=== PATIENT | male | born 1975 | race Caucasian/White ===

== ENCOUNTER 2025-02-26 05:18 | Inpatient (IN) | payer BC ==
[2025-02-25 11:53] VITALS: PULSE 90; RESP 16; O2SAT 96
[2025-02-25 12:36] LABS: MEAN PLATELET VOLUME 9.9 FL (7.4-10.4); PRE OP HEMATOCRIT 43.7 % (42.0-52.0); PRE OP HEMOGLOBIN 14.7 g/dL (14.0-17.9); PRE OP PLATELET COUNT 327 X10'3 (140-440); PRE OP WHITE BLOOD COUNT 9.2 10'3 (4.8-10.8); RED CELL DISTRIBUTION WIDTH 13.1 % (11.5-14.5)
[2025-02-25 12:46] LABS: PRE OP INR 1.0 INR; PRE OP PARTIAL THROMB. TIME 26.0 SECONDS (22-32); PRE OP PROTIME 10.7 SECONDS (9.0-12.0)
[2025-02-25 12:47] LABS: CREATININE 1.00 MG/DL (0.60-1.10); PRE OP ALT 50 U/L (30-65); PRE OP ANION GAP 11 (8-16); PRE OP AST 24 U/L (10-37); PRE OP BILIRUB, TOTAL 0.6 MG/DL (0.0-1.0); PRE OP GLUCOSE 119 MG/DL (70-104); PRE OP POTASSIUM 4.2 MMOL/L (3.4-5.1); PRE OP SODIUM 139 MMOL/L (135-145); TOTAL CARBON DIOXIDE 28.4 MMOL/L (24-32); eGFR 80 ML/MIN
[2025-02-25 12:47] LABS: UA COLLECTION TYPE CLN CATCH MIDSTREAM
[2025-02-25 12:48] LABS: LEUKOCYTE ESTERASE ,URINE NEGATIVE (Neg); NITRITES, URINE NEGATIVE (Neg); OCCULT BLOOD,URINE NEGATIVE (Neg)
[2025-02-25 12:49] LABS: MUCUS STRANDS FEW /LPF (Neg); SQUAMOUS EPITHELIAL CELL,UR MANY /LPF (FEW)
--- NOTE | 2025-02-25 13:15 | ELECTROCARDIOGRAPH REPORT ---
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 TIMMY Guzman Measurements Intervals [place] Rate: 85 P: 36 UT: 151 QRS: 49 QRSD: 84 T: -4 QT: 362 QTc: 431 Interpretive Statements Sinus rhythm Borderline T wave abnormalities Electronically Signed On 02-25-2025 15:32:[address] TIMMY Guzman Please click the below link to view image of tracing.
--- NOTE | 2025-02-25 13:56 | RADIOLOGY REPORT ---
DI CHEST,TWO VIEWS CLINICAL HISTORY: PRE OP CXR AVR COMPARISON: None TECHNIQUE: Frontal and lateral view of the chest was obtained FINDINGS: Lines and Tubes: None Lungs: No focal consolidation. Pleura: No effusion. No pneumothorax. Cardiomediastinal contours: Unremarkable Bones: No acute osseous abnormality. IMPRESSION: No acute cardiopulmonary disease.
[2025-02-25 14:37] LABS: ABG BASE EXCESS -0.3 mmol/L (-2.0-3.0); ABG HCO3 22.8 mmol/L (21.0-28.0); ABG OXYGEN SATURATION 96.8 % (94.0-98.0); ABG PCO2 (T) 33.1 mmHg (35.0-48.0); ABG PH (T) 7.456 (7.350-7.450); ABG PO2 (T) 88.1 mmHg (83.0-108.0); ALLEN'S TEST POSITIVE; FCOHb 0.3 % (0.5-1.5); FHHb 3.2 % (0.0-5.0); FIO2 21.0 mmHg/%; FMetHb 0.3 % (0.0-1.5); FO2Hb 96.2 % (94.0-98.0); MODE ROOM AIR; PATIENT TEMPERATURE 37.0; TOTAL HEMOGLOBIN 15.5 G/dl (13.5-17.5)
--- NOTE | 2025-02-25 15:43 | VASCULAR REPORT ---
CAROTID DOPPLER ULTRASOUND HISTORY: Preop COMPARISON: None TECHNIQUE: Real time martin scale, color Doppler, and spectral duplex images are obtained through the c arotid and vertebral arteries. Findings: Peak systolic velocity right internal carotid artery is 96 cm/s and right common carotid artery is 88 cm/s. Ratio is 1.09. Right vertebral artery not visualized. No significant atherosclerotic plaque no katharina within the right carotid arterial system. Peak systolic velocity left internal carotid artery is 75 cm/s and left common carotid artery is 85 c m/s. Ratio is 0.9. Antegrade flow noted in left vertebral artery. No significant atherosclerotic plaq ue noted within the left carotid arterial system. Impression: 1. No evidence of hemodynamically significant stenosis within the bilateral carotid arterial systems. 2. Antegrade flow within left vertebral artery. Right vertebral artery not visualized.
--- NOTE | 2025-02-25 16:15 | VASCULAR REPORT ---
PROCEDURE: [facility] VL VENOUS Exam Date: 02/25/2025 12:43 PM History: Preop for CABG Findings: Technique: Duplex Doppler evaluation of the superficial veins of the right and left lower extremities was perfor med including color Doppler and spectral/pulsed waveform analysis. Findings: Measurements of the lower extremity superficial veins in millimeters (mm) are provided below. RIGHT GREAT SAPHENOUS VEIN (GSV) in mm: 5.12 at proximal thigh, patent. 2.13 at mid thigh, patent. 3.46 at distal thigh, patent. 2.70 at proximal calf, patent. 2.70 at mid calf, patent. 0.27 at distal calf, patent. LEFT GREAT SAPHENOUS VEIN (GSV) in mm: 5.50 at proximal thigh, patent. 2.23 at mid thigh, patent. 3.31 at distal thigh, patent. 2.49 at proximal calf, patent. 2.0 at mid calf, patent. 2.36 at distal calf, patent. Impression: Lower extremity superficial venous mapping as detailed above.
--- NOTE | 2025-02-25 16:49 | PROCEDURE NOTE - Respiratory ---
Procedure Note-Respiratory Providers to CC Copies To 1: FANG SMITH III, MD Procedure Name: This is a spirometry study dated February 25, 2025. Spirometry measurements: Both the forced vital capacity and the FEV1 are normal. The FEV1 ratio is normal. The flow rates are normal. Bronchodilator was not administered as part of the study. Conclusion: Normal spirometry study. We have no previous studies for comparison. A blood gas was drawn from this patient while the patient was breathing room air. The blood pH is normal at 7.45. The pCO2 is borderline reduced at 33 mmHg. The room air oxygen level is normal with a PO2 of 88 mmHg. VIPUL DICKERSON MD Feb 25, 2025 16:49
[~2025-02-26] VITALS: Ht 167.6 cm; Wt 101.1 kg
[2025-02-26] VITALS (21 sets, daily range): BP systolic 95–152; BP diastolic 44–84; PULSE 95–118; RESP 12–25; TEMP 98.4; O2SAT 93–100
[~2025-02-26 05:18] MED LIST: AMLO1TAB12 PO; ATOR40TA2 PO; DULA1.5P SUBCUT; LANS30TA4 PO
[2025-02-26] MEDS ORDERED: insulin glargine (Lantus) pen - multi-dose SQ PRN ×2 (05:30→10:45)
[2025-02-26] MEDS: Insulin Reg/NS 100units/100mL 100 ML IV SCH ×2 (05:30→10:45)
[2025-02-26] MEDS ORDERED: dextrose 50%-water 50ml dispensing syringe IV PRN ×2 (05:30→10:45)
[2025-02-26] MEDS: ringers solution, lacted 1,000 ML IV SCH (06:23)
[2025-02-26] MEDS: VANCOMYCIN/H2O 1.5g/300mL PB 300 ML IV ONE (06:24)
[2025-02-26] MEDS: mupirocin 2% nasal ointment 1gm UD NS ONE (06:25)
[2025-02-26] MEDS: DOCUMENT DATE & TIME OF BETA-BLOCKER PO ONE (06:25)
[2025-02-26] MEDS: metoprolol tartrate 12.5mg (1/2 tablet) PO ONE (06:25)
[2025-02-26] MEDS: ceFAZolin 2gm/dext,iso 50mL 50 ML IV ONE (06:26)
[2025-02-26] MEDS ORDERED: vancomycin 1,000mg inj ONE (07:00)
[2025-02-26] MEDS ORDERED: LIDOcaine 1% 30ml preserv. free vial ONE (07:31)
[2025-02-26] MEDS ORDERED: BUPIVAcaine 0.5% inj/PF 30 ML ONE (07:31)
[2025-02-26] MEDS ORDERED: SUfentanil 50mcg/ml 1ml amp IV ONE (07:44)
[2025-02-26] MEDS ORDERED: rocuronium 10mg/ml inj IV ONE ×2 (07:44→07:45)
[2025-02-26] MEDS ORDERED: MIDAZolam 1 MG/ML 5ML VIAL ONE (07:44)
[2025-02-26] MEDS ORDERED: propofol inj 20 ML IV ONE (07:44)
[2025-02-26] MEDS: midazolam 1 mg/ML 2ml injection IV ONE (07:58)
[2025-02-26 08:46] LABS: ABG BASE EXCESS -0.2 mmol/L (-2.0-3.0); ABG HCO3 25.2 mmol/L (21.0-28.0); ABG OXYGEN SATURATION 98.8 % (94.0-98.0); ABG PCO2 43.8 mmHg (35.0-48.0); ABG PH 7.378 (7.350-7.450); ABG PO2 139.1 mmHg (83.0-108.0); CL (ABG) 101 mmol/L (98-107); FCOHb 0.2 % (0.5-1.5); FHHb 1.2 % (0.0-5.0); FMetHb 0.3 % (0.0-1.5); FO2Hb 98.3 % (94.0-98.0); GLUCOSE (ABG) 145 mg/dl (65-95); IONIZED CA (ABG) 1.16 mmol/L (1.15-1.33); K (ABG) 4.2 mmol/L (3.40-4.50); TOTAL HEMOGLOBIN 14.2 G/dl (13.5-17.5)
[2025-02-26 09:22] LABS: ACTIVATED CLOTTING TIME 559.0 SEC (101-148)
[2025-02-26 09:33] LABS: ABG BASE EXCESS 0.4 mmol/L (-2.0-3.0); ABG HCO3 25.0 mmol/L (21.0-28.0); ABG OXYGEN SATURATION 99.3 % (94.0-98.0); ABG PCO2 40.4 mmHg (35.0-48.0); ABG PH 7.410 (7.350-7.450); ABG PO2 276.9 mmHg (83.0-108.0); CL (ABG) 100 mmol/L (98-107); FCOHb 0.3 % (0.5-1.5); FHHb 0.7 % (0.0-5.0); FMetHb 0.3 % (0.0-1.5); FO2Hb 98.7 % (94.0-98.0); GLUCOSE (ABG) 124 mg/dl (65-95); IONIZED CA (ABG) 1.01 mmol/L (1.15-1.33); K (ABG) 5.2 mmol/L (3.40-4.50); TOTAL HEMOGLOBIN 10.6 G/dl (13.5-17.5)
[2025-02-26 09:41] LABS: ACTIVATED CLOTTING TIME 564.0 SEC (101-148)
[2025-02-26 09:48] LABS: ABG BASE EXCESS VENOUS 0.5 mmol/L (-2.0-3.0); ABG HCO3 VENOUS 26.7 mmol/L (22.0-29.0); ABG OXYGEN SATURATION VENOUS 84.6 % (60.0-85.0); ABG PCO2 VENOUS 49.5 mmHg (38.0-54.0); ABG PH (VENOUS) 7.349 (7.320-7.430); ABG PO2 VENOUS 51.0 mmHg (23.0-48.0); CL (ABG) 101 mmol/L (98-107); FCOHb VENOUS 0.3 % (0.5-1.5); FHHb VENOUS 15.3 %; FMetHb VENOUS 0.3 % (0.5-1.5); FO2Hb VENOUS 84.1 % (0-80.0); GLUCOSE (ABG) 158 mg/dl (65-95); IONIZED CA (ABG) 1.05 mmol/L (1.15-1.33); K (ABG) 5.1 mmol/L (3.40-4.50); TOTAL HEMOGLOBIN 11.4 G/dl (13.5-17.5)
[2025-02-26 09:56] LABS: ACTIVATED CLOTTING TIME 405.0 SEC (101-148)
[2025-02-26 10:15] LABS: ABG BASE EXCESS 3.3 mmol/L (-2.0-3.0); ABG HCO3 28.2 mmol/L (21.0-28.0); ABG OXYGEN SATURATION 99.4 % (94.0-98.0); ABG PCO2 44.7 mmHg (35.0-48.0); ABG PH 7.418 (7.350-7.450); CL (ABG) 100 mmol/L (98-107); FCOHb 0.3 % (0.5-1.5); FHHb 0.6 % (0.0-5.0); FMetHb 0.3 % (0.0-1.5); FO2Hb 98.8 % (94.0-98.0); GLUCOSE (ABG) 184 mg/dl (65-95); IONIZED CA (ABG) 1.15 mmol/L (1.15-1.33); K (ABG) 5.2 mmol/L (3.40-4.50); TOTAL HEMOGLOBIN 10.3 G/dl (13.5-17.5)
[2025-02-26 10:26] LABS: ACTIVATED CLOTTING TIME 640.0 SEC (101-148)
[2025-02-26 10:34] LABS: ABG BASE EXCESS VENOUS 0.2 mmol/L (-2.0-3.0); ABG HCO3 VENOUS 25.5 mmol/L (22.0-29.0); ABG OXYGEN SATURATION VENOUS 80.6 % (60.0-85.0); ABG PCO2 VENOUS 44.1 mmHg (38.0-54.0); ABG PH (VENOUS) 7.380 (7.320-7.430); ABG PO2 VENOUS 44.7 mmHg (23.0-48.0); CL (ABG) 101 mmol/L (98-107); FCOHb VENOUS 0.3 % (0.5-1.5); FHHb VENOUS 19.3 %; FMetHb VENOUS 0.1 % (0.5-1.5); FO2Hb VENOUS 80.3 % (0-80.0); GLUCOSE (ABG) 184 mg/dl (65-95); IONIZED CA (ABG) 1.19 mmol/L (1.15-1.33); K (ABG) 5.0 mmol/L (3.40-4.50); TOTAL HEMOGLOBIN 10.5 G/dl (13.5-17.5)
[2025-02-26 10:37] LABS: ACTIVATED CLOTTING TIME 110 SEC (101-148)
[2025-02-26] MEDS ORDERED: albumin (Human) 5% 250ml 250 ML IV ONE (10:37)
[2025-02-26] MEDS ORDERED: potassium Cl 40MEQ/270ML bag 250 ML IV PRN (10:45)
[2025-02-26] MEDS ORDERED: metoclopramide 5 mg/ml inj IV PRN (10:45)
[2025-02-26] MEDS ORDERED: sodium phosphate inj. 15 MMOL in dextrose 5%-water 250 ML IV PRN (10:45)
[2025-02-26] MEDS ORDERED: NORepinephrine 8mg/ 250ml NS 250 ML IV PRN (10:45)
[2025-02-26] MEDS ORDERED: magnesium hydroxide 30ml (MOM) UD suspension PO PRN (10:45)
[2025-02-26] MEDS ORDERED: mineral oil 133ml enema RC PRN (10:45)
[2025-02-26] MEDS ORDERED: potassium CL 10mEq/100ml bag 100 ML IV PRN (10:45)
[2025-02-26] MEDS ORDERED: potassium Cl 40MEQ/1/2NS 520ml 520 ML IV PRN (10:45)
[2025-02-26] MEDS ORDERED: bisacodyl 10mg suppository rectal RC PRN (10:45)
[2025-02-26] MEDS ORDERED: magnesium sulf-water 4G/100mL 100 ML IV PRN (10:45)
[2025-02-26] MEDS ORDERED: niCARDipine-NS 40mg/200ml IVPB 200 ML IV PRN (10:45)
[2025-02-26] MEDS ORDERED: ondansetron/PF 4mg/2ml inj IV PRN (10:45)
--- NOTE | 2025-02-26 10:53 | OPERATIVE REPORT ---
Operative Report Operative Report Cardiovascular surgery operative report 27 February 2025 Preoperative diagnosis: Severe aortic stenosis, NYHA class two heart failure Postop diagnosis: Same Procedure: Aortic valve replacement using a 25 mm Inspiris pericardial aortic valve prosthesis Surgeon: Dr. Adalid Hernadez assistants: Dr. Jeferson Beyer and Jeff Clement PA-C Anesthesia: General via endotracheal tube Complications: None EBL: 200 mL Procedure: The patient is taken to the operating room and placed in the supine position. Following the induction of general oral endotracheal anesthesia and the placement of appropriate lines the anterior chest, abdomen and bilateral lower extremities were prepped and draped sterilely. A limited upper sternotomy was performed Susu it off in the right 3rd interspace. The patient was systemically heparinized and the pericardium was opened in midline and suspended. Single aortic and dual stage right atrial cannula were then placed. After ensuring an ACT of greater than 300 seconds cardiopulmonary bypass was instituted. The aorta was then crossclamped and the heart was arrested with cold blood [place] cardioplegia delivered antegrade through the aortic root. The aorta was opened transversely well above the right coronary orifice of the valve was inspected. As expected it was a bicuspid valve with severe calcification and restriction. The leaflets were excised and the annulus was debrided free of calcium. The annulus was then sized and a 25 mm Inspiris pericardial aortic valve was chosen. This was implanted into the annulus using interrupted horizontal mattress sutures of pledgeted 2-0 Ethibond, placing the pledgets on the ventricular aspect. The ascending aorta was copiously irrigated with cold saline solution. The aortotomy was then closed with a everting running 4-0 Prolene suture. The suture line was coated with a thin coating of bio glue for hemostatic purposes. Temporary pacing wires placed the anterior surface of the right ventricle and right atrium while 1 L of warm blood was delivered antegrade. With a suction vent in the ascending aorta on high the aortic crossclamp was then removed. The patient returned to a sinus rhythm. Ventilation was resumed. The patient was allowed to begin ejecting to a pressure of 80-90 millimeter of mercury. Transesophageal echocardiography was used to confirm adequacy of de-airing. At that point he was weaned from cardiopulmonary bypass and decannulated in standard fashion. Protamine solution was administered to reverse heparinization and careful hemostasis was achieved throughout the mediastinum. A 32 [place] straight chest tube was placed anterior to the mediastinum. This has secured to skin with 1. Silk. The chest was then closed by 1st reapproximating the thymic tissue in the midline. The sternal edges were treated with vancomycin paste. They were then reapproximated in the midline with interrupted [id number] of 7. Stainless steel wire. The midline fascia, subcutaneous tissue and skin were closed in layers. Sterile ivon ssings were applied and the chest tube was attached to water-seal. The patient was then returned to the ICU in critical but stable condition, having tolerated the procedure satisfactorily. There were no complications. Sponge, needle and instrument counts were correct x2 at the end of the case. Jeff Clement PA-C was present for and assisted throughout the entire procedure. ADALID HERNADEZ III, MD Feb 26, 2025 10:53
[2025-02-26 11:29] LABS: ABG BASE EXCESS -5.7 mmol/L (-2.0-3.0); ABG HCO3 19.0 mmol/L (21.0-28.0); ABG OXYGEN SATURATION 99.0 % (94.0-98.0); ABG PCO2 (T) 33.9 mmHg (35.0-48.0); ABG PH (T) 7.365 (7.350-7.450); ABG PO2 (T) 142.3 mmHg (83.0-108.0); FCOHb 0.5 % (0.5-1.5); FHHb 1.0 % (0.0-5.0); FIO2 80.0 mmHg/%; FMetHb 0.3 % (0.0-1.5); FO2Hb 98.2 % (94.0-98.0); MODE VENT - SIMV; PATIENT TEMPERATURE 36.4; PEEP 5 cm H2O; RESPIRATORY RATE 12 b/min; TIDAL VOLUME 550 mL; TOTAL HEMOGLOBIN 11.8 G/dl (13.5-17.5)
--- NOTE | 2025-02-26 11:33 | RADIOLOGY REPORT ---
CHEST RADIOGRAPH Indication: POST OP Technique: Single frontal view of the chest was obtained Comparison: None FINDINGS: Lines and Tubes: Endotracheal tube 6 cm from the viki. Nasogastric tube tip in the stomach. Right IJ approach central venous catheter tip in the SVC. Right IJ approach swan-Leora catheter tip in the pulmonary artery. Mediastinal drain. Lungs: No focal consolidation. Pleura: No effusion. No pneumothorax. Cardiomediastinal contours: Unremarkable Bones: No acute osseous abnormality. IMPRESSION: Status post CABG.
[2025-02-26 11:39] LABS: MEAN PLATELET VOLUME 10.2 FL (7.4-10.4); RED CELL DISTRIBUTION WIDTH 12.9 % (11.5-14.5)
[2025-02-26 11:59] LABS: CREATININE 0.73 MG/DL (0.60-1.10); TOTAL CARBON DIOXIDE 26.4 MMOL/L (24-32); eCRCL 113 ML/MIN; eGFR > 90 ML/MIN
[2025-02-26 12:01] LABS: PHOSPHORUS 2.7 MG/DL (2.3-4.5)
[2025-02-26 12:23] LABS: APTT 29 SECONDS (22-32); INR 1.3 INR
[2025-02-26] MEDS: albumin (Human) 5% 250ml 250 ML IV PRN (12:55)
[2025-02-26 13:17] LABS: ABG BASE EXCESS -6.5 mmol/L (-2.0-3.0); ABG HCO3 17.2 mmol/L (21.0-28.0); ABG OXYGEN SATURATION 97.6 % (94.0-98.0); ABG PCO2 (T) 29.0 mmHg (35.0-48.0); ABG PH (T) 7.389 (7.350-7.450); ABG PO2 (T) 95.1 mmHg (83.0-108.0); FCOHb 0.8 % (0.5-1.5); FHHb 2.4 % (0.0-5.0); FIO2 40.0 mmHg/%; FMetHb 0.3 % (0.0-1.5); FO2Hb 96.5 % (94.0-98.0); MODE SPont MODE; PATIENT TEMPERATURE 36.8; PEEP 5 cm H2O; TOTAL HEMOGLOBIN 13.3 G/dl (13.5-17.5)
[2025-02-26] MEDS: ketorolac trometh 15mg/ml vial 15 MG/ML ML IV SCH (13:29)
[2025-02-26] MEDS: ceFAZolin/D5W- 1GM premix 50 ML IV SCH (15:27)
[2025-02-26] MEDS: HYDROcodone/acetaminophen 10/325mg tab PO PRN ×2 (16:23→21:50)
[2025-02-26 17:43] LABS: MEAN PLATELET VOLUME 9.6 FL (7.4-10.4); RED CELL DISTRIBUTION WIDTH 12.8 % (11.5-14.5)
--- NOTE | 2025-02-26 17:43 | ELECTROCARDIOGRAPH REPORT ---
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 TIMMY Guzman Measurements Intervals [place] Rate: 111 P: 55 DE: 153 QRS: 74 QRSD: 82 T: -16 QT: 316 QTc: 430 Interpretive Statements Sinus tachycardia Nonspecific T abnormalities, lateral leads Electronically Signed On 02-27-2025 15:35:[address] TIMMY Guzman Please click the below link to view image of tracing.
[2025-02-26 17:55] LABS: CREATININE 0.87 MG/DL (0.60-1.10); TOTAL CARBON DIOXIDE 25.1 MMOL/L (24-32); eCRCL 95 ML/MIN; eGFR > 90 ML/MIN
[2025-02-26] MEDS: potassium Cl 20mEq/100mL bag 100 ML IV PRN (18:17)
[2025-02-26] MEDS: magnesium sulf-water 2g/50mL 50 ML IV PRN (18:17)
[2025-02-26 18:34] LABS: PHOSPHORUS 0.9 MG/DL (2.3-4.5)
[2025-02-26] MEDS: albumin (Human) 5% 250ml 250 ML IV ONE (18:34)
[2025-02-26] MEDS: morphine 4 MG/ML inj SYRINge IV PRN (18:37)
--- NOTE | 2025-02-26 18:59 | CARDIOLOGY REPORT ---
APPROVED REPORT EXAM: Intraoperative transesophageal echocardiogram with 3D and color flow Doppler. Study contains b [facility] pre- and post-op images. Patient Location: CVOR Blood Pressure: 117/66 mmHg Heart Rate: 92 bpm Indications AORTIC VALVE STENOSIS 25 mm Inspiris Resilia Aortic Valve GUSTAVO Probe Passed by Kristen Meraz MD PRIMARY [employer]ODUCTS INSPECTORS: Federico Murphy MD / Surgeon: Noemy Hernadez MD Previous ECHO: 11/03/24, CVC, EF:70-75; BISI: 0.9; GRAD: 64 / 41; PKV: 4.01 LEFT VENTRICLE PRE-OP: Normal LV size and function. Mild concentric hypertrophy. LVEF is 70%. POST-OP: Unchanged. RIGHT VENTRICLE PRE-OP: Right ventricle is mildly dilated with adequate function. POST-OP: Unchanged. ATRIA PRE-OP: The left atrium size is normal. Left atrial appendage is visualized in multiple planes and ap pears normal without debris. Left upper pulmonary vein identified and isolated by 2D and color Dopple r. POST-OP: Unchanged. AORTIC VALVE PRE-OP: Trileaflet AV is severely stenotic. BISI is measured at 0.9 cmsq. Peak / mean gradients of 66 / 42 mmHG. Peak velocity is measured at 4.06 m/sec. Trivial insufficiency. POST-OP: 25 mm Insiris Res stan bioprosthetic AVR appears well seated with normal function. Trivial paravalvular leak present at 12 o'clock in TTE SAX BASE. Peak / mean gradients of 24 / 15 mmHG. Peak velocity is measured at 2.48 m/sec. MITRAL VALVE PRE-OP: Mild mitral annular calcification without stenosis. Trace regurgitation. POST-OP: Unchanged. TRICUSPID VALVE PRE-OP: The tricuspid valve is normal in structure with trace regurgitation. POST-OP: Unchanged. PULMONIC VALVE PRE-OP: Pulmonic valve is grossly normal in structure with physiologic insufficiency. POST-OP: Unchan ged. GREAT VESSELS PRE-OP: The aortic root is normal in size. Ascending aorta is dilated (4.0 cm) POST-OP: Unchanged. PERICARDIUM PRE-OP: Trivial loculated pericardial effusion present without hemodynamic compromise. POST-OP: Unch anged. CONCLUSION PRE-OP: Normal LV size and function. Mild concentric hypertrophy. LVEF is 70%. POST-OP: Unchanged. MN E-OP: Right ventricle is mildly dilated with adequate function. POST-OP: Unchanged. PRE-OP: The left atrium size is normal. Left atrial appendage is visualized in multiple planes and appears normal with out debris. Left upper pulmonary vein identified and isolated by 2D and color Doppler. POST-OP: Uncha nged. PRE-OP: Trileaflet AV is severely stenotic. BISI is measured at 0.9 cmsq. Peak / mean gradients of 66 / 42 mmHG. Peak velocity is measured at 4.06 m/sec. Trivial insufficiency. POST-OP: 25 mm Insir is Resilia bioprosthetic AVR appears well seated with normal function. Trivial paravalvular leak pres ent at 12 o'clock in TTE SAX BASE. Peak / mean gradients of 24 / 15 mmHG. Peak velocity is measured a t 2.48 m/sec. PRE-OP: Mild mitral annular calcification without stenosis. Trace regurgitation. POST-O P: Unchanged. PRE-OP: The tricuspid valve is normal in structure with trace regurgitation. POST-OP: U nchanged. PRE-OP: The aortic root is normal in size. Ascending aorta is dilated (4.0 cm) POST-OP: Unc hanged. PRE-OP: Trivial loculated pericardial effusion present without hemodynamic compromise. POST- OP: Unchanged. Conclusion PRE-OP: Normal LV size and function. Mild concentric hypertrophy. LVEF is 70%. POST-OP: Unchanged . PRE-OP: Right ventricle is mildly dilated with adequate function. POST-OP: Unchanged. PRE-OP: The left atrium size is normal. Left atrial appendage is visualized in multiple planes and appears normal without debris. Left upper pulmonary vein identified and isolated by 2D and color Dopp ler. POST-OP: Unchanged. PRE-OP: Trileaflet AV is severely stenotic. BISI is measured at 0.9 cmsq. Peak / mean gradients of 66 / 42 mmHG. Peak velocity is measured at 4.06 m/sec. Trivial insufficiency. POST-OP: 25 mm Insir is Resilia bioprosthetic AVR appears well seated with normal function. Trivial paravalvular leak pre sent at 12 o'clock in TTE SAX BASE. Peak / mean gradients of 24 / 15 mmHG. Peak velocity is measur ed at 2.48 m/sec. PRE-OP: Mild mitral annular calcification without stenosis. Trace regurgitation. POST-OP: Unchang ed. PRE-OP: The tricuspid valve is normal in structure with trace regurgitation. POST-OP: Unchanged. PRE-OP: The aortic root is normal in size. Ascending aorta is dilated (4.0 cm) POST-OP: Unchanged. PRE-OP: Trivial loculated pericardial effusion present without hemodynamic compromise. POST-OP: U nchanged.
[2025-02-26] MEDS: vancomycin/NS 1 GM ADD-VANTAGE 250 ML IV SCH (19:33)
[2025-02-26] MEDS: mupirocin 2% nasal ointment 1gm UD NS SCH (19:33)
[2025-02-26] MEDS: sodium phosphate inj. 30 MMOL in dextrose 5%-water 250 ML IV PRN (20:41)
[2025-02-27] VITALS (20 sets, daily range): BP systolic 99–133; BP diastolic 51–80; PULSE 88–118; RESP 13–24; TEMP 98.1–99.1; O2SAT 94–97
[2025-02-27 01:21] LABS: MEAN PLATELET VOLUME 10.3 FL (7.4-10.4); RED CELL DISTRIBUTION WIDTH 12.9 % (11.5-14.5)
[2025-02-27 01:34] LABS: CREATININE 0.64 MG/DL (0.60-1.10); PHOSPHORUS 3.7 MG/DL (2.3-4.5); TOTAL CARBON DIOXIDE 22.9 MMOL/L (24-32); eCRCL 129 ML/MIN; eGFR > 90 ML/MIN
--- NOTE | 2025-02-27 06:08 | RADIOLOGY REPORT ---
CHEST RADIOGRAPH Indication: POST OP Technique: Single frontal view of the chest was obtained COMPARISON: DI CHEST,SINGLE VIEW on DOS: 02/26/25 FINDINGS: Lines and Tubes: Status post interval extubation and removal of enteric catheter and right internal j ugular swan-Leora catheter. Right internal jugular central venous access catheter remains stable in po sition. Lungs: Mild residual bibasilar atelectasis. The lungs are otherwise clear. Pleura: No effusion. No pneumothorax. Cardiomediastinal contours: Cardiomegaly status post median sternotomy. Bones: Unremarkable IMPRESSION: 1. Mild bibasilar atelectasis. 2. Cardiomegaly. 3. Interval extubation and removal of right IJ swan-Leora catheter. Right IJ central venous access ca theter stable in position.
--- NOTE | 2025-02-27 07:01 | PROGRESS NOTE ---
Progress Note CV Providers to CC ~ Antibiotics Ordered?: No Subjective Subjective S/P AVR via mini-sternotomy POD # 1. Alert, up to chair. Pain controlled. No nausea. [place] is out. Objective Vitals Vital Signs Date Time Temp Pulse Resp B/P (MAP) Pulse Ox O2 Delivery O2 Flow Rate FiO2 02/27/25 05:59 98 16 121/58 (79) 95 Nasal Cannula 1.0 103/61 (75) 02/27/25 05:00 99.0 02/26/25 13:20 32 Lab Results: 02/27/25 0100 02/27/25 0100 Objective Lungs - mildly diminished at bases Heart - RRR, SR Abd/Extr - OK Incisions - CDI Coagulation Studies Laboratory Tests Test 02/26/25 10:40 02/26/25 11:15 Heparin Level (COAG) 0 MG/KG Calculated Heparin Req (Hep Assay) 95953 UNITS Calculated Protamine Req (Hep Assay 0 MG Activated Clotting Time 110 SEC (101-148) Prothrombin Time 12.8 SECONDS (9.0-12.0) H INR International Normalized Ratio 1.3 INR Activated Partial Thromboplast Time 29 SECONDS (22-32) Coagulation Comments Cardiac Rhythm: Sinus Rhythm Problem\Assessment\Plan Additional Plan POD # 1 SR CI was excellent. [place] is out. Advance diet, ambulate. Sepsis Screening Reassessment Date: Feb 27, 2025 Supervising Co-signing Provider: LADARIUS Nuñez Feb 27, 2025 07:01
[2025-02-27] MEDS: metoprolol tartrate 12.5mg (1/2 tablet) PO SCH (08:00)
[2025-02-27 12:22] LABS: ABG PO2 346.9 mmHg (83.0-108.0)
[2025-02-27] MEDS: JUVEN Smoothie Arginine/Glut./Ca2+Bmb (Juven 19.3pkt) 240ml cup PO SCH (12:30)
--- NOTE | 2025-02-27 15:25 | PROGRESS NOTE ---
Progress Note CV Providers to CC ~ Antibiotics Ordered?: No Objective Vitals Vital Signs Date Time Temp Pulse Resp B/P (MAP) Pulse Ox O2 Delivery O2 Flow Rate FiO2 02/27/25 14:29 19 02/27/25 14:00 100.2 93 124/75 (91) 96 02/27/25 05:59 Nasal Cannula 1.0 02/26/25 13:20 32 Lab Results: 02/27/25 0100 02/27/25 0100 Coagulation Studies Laboratory Tests Test 02/26/25 10:40 02/26/25 11:15 Heparin Level (COAG) 0 MG/KG Calculated Heparin Req (Hep Assay) 80256 UNITS Calculated Protamine Req (Hep Assay 0 MG Activated Clotting Time 110 SEC (101-148) Prothrombin Time 12.8 SECONDS (9.0-12.0) H INR International Normalized Ratio 1.3 INR Activated Partial Thromboplast Time 29 SECONDS (22-32) Coagulation Comments Cardiac Rhythm: Sinus Rhythm Problem\Assessment\Plan Additional Plan CT output now minimal and serous. DC drain and PW's Supervising MD Co-signing Provider: LADARIUS Nuñez Feb 27, 2025 15:24
[2025-02-27] MEDS: INSULIN LISPRO 100 UNIT/ML INSULN.PEN MULTI-DOSE SQ SCH (17:00)
[2025-02-28] VITALS (11 sets, daily range): BP systolic 96–148; BP diastolic 68–90; PULSE 102–121; RESP 15–25; TEMP 97.2–98.8; O2SAT 95–98
--- NOTE | 2025-02-28 05:55 | RADIOLOGY REPORT ---
CHEST RADIOGRAPH Indication: POST OP Technique: Single frontal view of the chest was obtained COMPARISON: DI CHEST,SINGLE VIEW on DOS: 02/27/25, DI CHEST,SINGLE VIEW on DOS: 02/26/25 FINDINGS: Lines and Tubes: Median sternotomy. Lungs: Mild congestion Pleura: No effusion. No pneumothorax. Cardiomediastinal contours: Cardiomegaly. Cardiac valve replacement. Bones: Unremarkable IMPRESSION: Mild congestion.
[2025-02-28 06:48] LABS: MEAN PLATELET VOLUME 11.0 FL (7.4-10.4); RED CELL DISTRIBUTION WIDTH 13.5 % (11.5-14.5)
[2025-02-28 07:12] LABS: CREATININE 0.75 MG/DL (0.60-1.10); PHOSPHORUS 2.7 MG/DL (2.3-4.5); TOTAL CARBON DIOXIDE 25.8 MMOL/L (24-32); eCRCL 110 ML/MIN; eGFR > 90 ML/MIN
[2025-02-28] MEDS: pantoprazole 40mg Tablet.DR PO SCH (07:46)
--- NOTE | 2025-02-28 10:54 | PROGRESS NOTE ---
Progress Note CV Providers to CC ~ Progress Note: POD#2 AVR Central Line/PICC still needed: No [place] Indications Met/Not Met: F/C Indications Not Met Antibiotics Ordered?: No Subjective Subjective Patient was feeling reasonably well this morning. No complaints Objective Vitals Vital Signs Date Time Temp Pulse Resp B/P (MAP) Pulse Ox O2 Delivery O2 Flow Rate FiO2 02/28/25 10:49 98.8 107 15 96/68 (77) 98 Room Air 02/28/25 07:00 1.0 02/28/25 03:00 93 Lab Results: 02/28/25 0538 02/28/25 0538 Objective Lungs fairly clear although a bit diminished at right base. Cardiac exam regular rate and rhythm with crisp S2. No rubs present. Abdomen is soft and nontender. No peripheral edema. Coagulation Studies Laboratory Tests Test 02/26/25 10:40 02/26/25 11:15 Heparin Level (COAG) 0 MG/KG Calculated Heparin Req (Hep Assay) 14316 UNITS Calculated Protamine Req (Hep Assay 0 MG Activated Clotting Time 110 SEC (101-148) Prothrombin Time 12.8 SECONDS (9.0-12.0) H INR International Normalized Ratio 1.3 INR Activated Partial Thromboplast Time 29 SECONDS (22-32) Coagulation Comments Cardiac Rhythm: Sinus Rhythm, Sinus Tachycardia Problem\Assessment\Plan Additional Plan Doing well following AVR. Hemodynamics satisfactory. Need to mobilize and continue to push incentive spirometry. Lasix for post CPB volume overload. Tolerating beta blockade well. Home in 1-2 days. FANG SMITH III, MD Feb 28, 2025 10:54
[2025-02-28] MEDS: heparin, porcine 5000 units/ml vial SQ SCH (16:58)
[2025-02-28] MEDS: HYDROcodone/acetaminophen 5mg/325mg tablet PO PRN (17:08)
[2025-02-28] MEDS: potassium Cl 20 mEq SR tablet PO PRN (21:22)
[2025-03-01 02:00] VITALS: BP 101/72; PULSE 100; RESP 16; TEMP 97; O2SAT 96
[2025-03-01 06:00] VITALS: BP 102/69; PULSE 101; RESP 16; TEMP 97.5; O2SAT 97
[2025-03-01 06:36] LABS: MEAN PLATELET VOLUME 11.5 FL (7.4-10.4); RED CELL DISTRIBUTION WIDTH 12.9 % (11.5-14.5)
--- NOTE | 2025-03-01 07:15 | RADIOLOGY REPORT ---
DI CHEST,SINGLE VIEW, HISTORY: POST OP COMPARISON: DI CHEST,SINGLE VIEW on DOS: 02/28/25, DI CHEST,SINGLE VIEW on DOS: 02/27/25, DI CHEST,SING LE VIEW on DOS: 02/26/25 DI CHEST,SINGLE VIEW on DOS: 02/28/25, DI CHEST,SINGLE VIEW on DOS: 02/27/25, DI CHEST,SINGLE VIEW on D OS: 02/26/25 TECHNICAL DATA: 1 view of the chest was obtained. FINDINGS: Lines and tubes: None Cardiomediastinal silhouette: normal Pulmonary vasculature: normal Lung expansion: normal Lung airspace: Mild bibasilar atelectasis. Lung interstitium: normal Pleura: normal Pneumothorax: no Bones: Unremarkable Other: no IMPRESSION: Mild bibasilar atelectasis.
[2025-03-01 07:18] LABS: CREATININE 0.71 MG/DL (0.60-1.10); PHOSPHORUS 2.6 MG/DL (2.3-4.5); TOTAL CARBON DIOXIDE 28.3 MMOL/L (24-32); eCRCL 116 ML/MIN; eGFR > 90 ML/MIN
[2025-03-01 08:00] VITALS: RESP 16; O2SAT 97
[2025-03-01 08:40] VITALS: BP_SYST 102; PULSE 101
--- NOTE | 2025-03-01 09:29 | PROGRESS NOTE ---
Progress Note CV Providers to CC ~ Antibiotics Ordered?: No Subjective Subjective S/P AVR via mini-sternotomy POD # 3. Ambulating without any difficulty. Pain is controlled. Very much would like to go home today. Objective Vitals Vital Signs Date Time Temp Pulse Resp B/P (MAP) Pulse Ox O2 Delivery O2 Flow Rate FiO2 03/01/25 08:40 101 03/01/25 08:39 20 03/01/25 06:00 97.5 102/69 (80) 97 Room Air 02/28/25 19:00 96 02/28/25 07:00 1.0 Lab Results: 03/01/25 0550 03/01/25 0550 Objective Lungs - clear Heart - RRR, SR/ ST Abd/Extr - OK Incisions - CDI Coagulation Studies Laboratory Tests Test 02/26/25 10:40 02/26/25 11:15 Heparin Level (COAG) 0 MG/KG Calculated Heparin Req (Hep Assay) 96576 UNITS Calculated Protamine Req (Hep Assay 0 MG Activated Clotting Time 110 SEC (101-148) Prothrombin Time 12.8 SECONDS (9.0-12.0) H INR International Normalized Ratio 1.3 INR Activated Partial Thromboplast Time 29 SECONDS (22-32) Coagulation Comments Cardiac Rhythm: Sinus Rhythm, Sinus Tachycardia Problem\Assessment\Plan Additional Plan POD # 3 SR/ST Uptitrate B mignon. Wants to go home. Will d/w Dr. Hernadez Supervising Co-signing Provider: LADARIUS Nuñez Mar 01, 2025 09:29
[2025-03-01] MEDS ORDERED: HYDR-3972 PO (09:31)
[2025-03-01] MEDS ORDERED: LOP12.5T PO (09:31)
[2025-03-01] MEDS ORDERED: ASPI81TA53 PO (09:31)
[2025-03-01 10:18] VITALS: RESP 16
[2025-03-01] MEDS ORDERED: HYDR-3968 PO (17:05)
--- NOTE | 2025-03-02 00:42 | DISCHARGE SUMMARY ---
DATE OF DISCHARGE: 03/01/2025 DICTATING PHYSICIAN: Jeff Clement ADMITTING PHYSICIAN: Adalid Hernadez MD HOP TRAINER: Sharath Murphy MD PREOPERATIVE DIAGNOSES: Severe aortic stenosis with a longstanding aortic murmur, also history of diabetes and history of hypertension. DISCHARGE DIAGNOSES: Severe aortic stenosis with a longstanding aortic murmur, also history of diabetes and history of hypertension, status post aortic valve replacement via mini sternotomy. COMPLICATIONS: Postoperatively none. CONDITION ON DISCHARGE: Stable. PROGNOSIS: Good. SUMMARY: This is a very pleasant 49-year-old gentleman with a longstanding aortic murmur history, being followed by Dr. Murphy with serial echocardiography. Most recent echo demonstrated a valve area of 0.8. Cardiac catheterization demonstrated no significant coronary lesions. The patient was admitted electively on 02/26/2025 and taken to the operating room by Dr. Hernadez where he underwent aortic valve replacement with a 25-mm Inspiris pericardial aortic valve prosthesis along with transesophageal echocardiography via mini sternotomy. The patient very much preferred tissue valve as he did not want to take anticoagulant therapy despite knowledge that he will very much likely require reintervention in the future. Following the operation, the patient was transferred to the CICU in stable condition where the following morning, he was awake, alert, extubated, reasonably well controlled with his pain. His H and H was 9.3 and 28.3, creatinine 0.64. He had an excellent cardiac index and [place] was discontinued. Diet was advanced. He was ambulated. Later that day, his chest drain was removed and he was transferred to the progressive care unit for further rehabilitation where he has continued to enjoy an uncomplicated postoperative course. He had a bowel movement yesterday. He is walking well and very much wants to go home today. DISCHARGE PROGRAM: Follow up appointment with Dr. Hernadez's office in 2 weeks, with Dr. Murphy in 4 weeks, and with his primary physician in 6 weeks. ACTIVITY: As per cardiac rehab instructions. He is instructed to take short showers, to observe sternal precautions, no heavy lifting, no driving. DIET: He will be on a carb-controlled diet. MEDICATIONS ON DISCHARGE: Include aspirin 81 mg p.o. daily, [place] 10/325 mg 1 p.o. every 6 hours p.r.n. pain, Lopressor 25 mg p.o. b.i.d., Lipitor 40 mg p.o. daily, Trulicity 1.5 mg subcutaneously every 7 days, Prevacid 30 mg p.o. daily. For now, his [place] will be held. Jeff Hernadez MD TID: [id number] RECEIPT: [id number] CHRISTIN/SHAMIR cc: Sharath Murphy MD
== END 2025-03-01 11:20 | disposition home or self-care (01) | DRG 221 ==
LOC: PAS IN 05:18 → CICU 2S 11:10 → PCU 3S 02-27 17:04
PROVIDERS: ADMIT Thoracic Surgery (Cardiothoracic Vascular Surgery); ATTEND Thoracic Surgery (Cardiothoracic Vascular Surgery)
PROC: B24BZZ4 Ultrasonography of Heart with Aorta, Transesophageal (ICD-10-PCS; 2025-02-26)
PROC: 5A1221Z Performance of Cardiac Output, Continuous (ICD-10-PCS; 2025-02-26)
PROC: 02RF0JZ Replacement of Aortic Valve with Synthetic Substitute, Open Approach (ICD-10-PCS; principal; 2025-02-26 08:03)
DX: I35.0 Nonrheumatic aortic (valve) stenosis (principal); E87.70 Fluid overload, unspecified; E11.9 Type 2 diabetes mellitus without complications; I11.0 Hypertensive heart disease with heart failure; I50.9 Heart failure, unspecified; Z79.899 Other long term (current) drug therapy
CPT/HCPCS: 93312; 93325; Z7506; Z7508; 36415; 36600; 71045; 71046; 76376; 80048; 80053; 81001; 82330; 82435; 82803; 82947; 82948; 83036; 83735; 84100; 84132; 84295; 85018; 85025; 85347; 85610; 85730; 86885; 86900; 86901; 86920; 87081; 93005; 93880; 93970; 94060; 94668; 94760; 97116; 97161; 97530; A4333; A4615; A4618; A6212; A6213; A6258; A6402; A6449; A7000; A7048; C1751; G0378; J0169; J0665; J0690; J1644; J1815; J1885; J1938; J2003; J2150; J2250; J2270; J2704; J2720; J2919; J3373; J3375; J3480; J3490; J7030; J7040; J7050; J7060; J7120; P9045; P9047